=== PATIENT | female | born 1945 | race American Indian/Alaskan Native ===

== ENCOUNTER 2018-12-13 12:43 | Outpatient (CLI) | payer MEDICARE | END 2018-12-13 12:44 | disposition home or self-care (01) | LOC: RAD 12:43 | DX: R92.8 Other abnormal and inconclusive findings on diagnostic imaging of breast (principal) ==

== ENCOUNTER 2019-03-29 12:22 | Outpatient (CLI) | payer MEDICARE | END 2019-03-29 12:23 | disposition home or self-care (01) | LOC: RAD 12:22 | DX: M54.2 Cervicalgia (principal) ==